=== PATIENT | male | born 1930 | race Caucasian/White ===

== ENCOUNTER 2017-07-02 10:54 | Inpatient (IN) ==
[2017-07-02 12:00] LABS: Apearance,Urine Slightly Hazy (Clear); Bacteria,Urine Many /HPF (Few); Bilirubin,Urine Negative (Negative); Blood, Urine Moderate mg/dL (Negative); Glucose,Urine (UA) Negative (Negative); Ketones,Urine Negative (Negative); Mucus,Urine Many /LPF (Occasional); Nitrite,Urine Positive (Negative); Protein,Urine >=500 MG/DL; RBC,Urine 3 /HPF (0-4); Squamous Epithelial Cell,Urine Occasional /HPF (0-10); Urine Color Yellow (Yellow); Urine Specific Gravity 1.017 (1.001-1.035); Urine Urobilinogen < 2.0 EU/DL (0.2-1.0); WBC,Urine 87 /HPF (0-6)
[2017-07-02] MEDS: ALBUTEROL 2.5 MG/3 ML NEB RESP TX SCH ×3 (12:00→12:50)
[2017-07-02 12:03] LABS: Basophils % 0.1 % (0.0-0.8); Hematocrit 37.7 VOL% (42.0-52.0); Hemoglobin 11.5 GM/DL (14.0-18.0); Immature Granulocytes Absolute 0.07 #; Lymphocytes # 0.7 10*3/uL (1.4-4.0); Lymphocytes % 9.4 % (21.2-54.2); Mean Corpuscular HGB Conc 30.5 GM/DL (32-36); Mean Corpuscular Hemoglobin 30 PG (27-34); Mean Corpuscular Volume 97.2 FL (87-102); Mean Platelet Volume 11.5 FL (9.6-12.0); Monocytes # 0.3 10*3/uL (0.11-0.8); Monocytes % 4.7 % (1.7-12.7); Neutrophils # 5.9 10*3/uL (1.4-7.4); Neutrophils % 84.8 % (38.7-73.9); Platelet Count 144 T/CUMM (130-400); Red Blood Count 3.88 MC/CUMM (3.8-5.5); Red Cell Distribution Width 15.2 % (9.3-17.3)
[2017-07-02 12:09] LABS: INR 1.2; PT Patient Result 12.2 SECS
[2017-07-02 12:24] LABS: Band Neutrophils 2 % (0-10); Hypochromasia 1+; Lymphocytes 8 % (20-55); Segmented Neutrophils 87 % (50-85); Total Cells Counted 100
[2017-07-02 12:25] LABS: Ovalocytes Slight; Platelet Estimate Adequate
[2017-07-02] MEDS ORDERED: PIPERACILLIN/TAZOBACTAM 3,375 MG in SODIUM CHLORIDE 0.9% 100 ML IV STA (12:31)
[2017-07-02 12:36] LABS: Albumin 2.1 G/DL (3.4-5.0); Bilirubin,Total 0.8 MG/DL (0.2-1.0); Calcium 10.8 MG/DL (8.5-10.1); Potassium 3.8 MMOL/L (3.5-5.1); Total Protein 7.3 G/DL (6.4-8.3)
[2017-07-02] MEDS ORDERED: PIPERACILLIN/TAZOBACTAM 3,375 MG VIAL IV ONE (13:14)
[2017-07-02] MEDS ORDERED: SODIUM CHLORIDE 0.9% 100 ML IV ONE (13:15)
[2017-07-02] MEDS ORDERED: FUROSEMIDE 40 MG/4 ML VIAL IV STA (13:21)
[2017-07-02] MEDS ORDERED: FUROSEMIDE 40 MG/4 ML VIAL ONE (13:34)
[2017-07-02] MEDS ORDERED: ONDANSETRON 4 MG/2 ML VIAL IV PRN (14:47)
[2017-07-02] MEDS ORDERED: LEVOFLOXACIN INJ 500 MG in PREMIX 1 EACH IV ONE (15:00)
[2017-07-02] MEDS: MEROPENEM 1,000 MG in SYRINGE 1 EACH IV SCH (19:21)
[2017-07-03 04:43] LABS: Basophils % 0.1 % (0.0-0.8); Eosinophils % 0.1 % (0.00-10.9); Hematocrit 38.2 VOL% (42.0-52.0); Hemoglobin 11.6 GM/DL (14.0-18.0); Immature Granulocytes % 0.6 %; Immature Granulocytes Absolute 0.06 #; Lymphocytes # 1.8 10*3/uL (1.4-4.0); Lymphocytes % 19.2 % (21.2-54.2); Mean Corpuscular HGB Conc 30.4 GM/DL (32-36); Mean Corpuscular Hemoglobin 29 PG (27-34); Mean Corpuscular Volume 96.5 FL (87-102); Mean Platelet Volume 11.3 FL (9.6-12.0); Monocytes # 0.6 10*3/uL (0.11-0.8); Monocytes % 6.4 % (1.7-12.7); Neutrophils # 6.9 10*3/uL (1.4-7.4); Neutrophils % 73.6 % (38.7-73.9); Platelet Count 157 T/CUMM (130-400); Red Blood Count 3.96 MC/CUMM (3.8-5.5); White Blood Count 9.4 T/CUMM (4-12)
[2017-07-03 05:20] LABS: Calcium 10.6 MG/DL (8.5-10.1)
[2017-07-03] MEDS: MEROPENEM 1,000 MG in SYRINGE 1 EACH IV SCH ×2 (05:49→17:36)
[2017-07-03] MEDS: PANTOPRAZOLE 40 MG VIAL IV SCH (11:04)
[2017-07-03] MEDS: FUROSEMIDE 40 MG/4 ML VIAL IV SCH ×2 (11:06→15:46)
[2017-07-03] MEDS: POTASSIUM CHLORIDE 20 MEQ TABLET PO SCH ×4 (11:16→20:40)
[2017-07-03] MEDS ORDERED: LEVOFLOXACIN INJ 250 MG in PREMIX 1 EACH IV SCH (15:00)
[2017-07-04 06:07] LABS: Basophils % 0.1 % (0.0-0.8); Eosinophils % 0.2 % (0.00-10.9); Hematocrit 42.3 VOL% (42.0-52.0); Hemoglobin 13.4 GM/DL (14.0-18.0); Immature Granulocytes % 0.8 %; Immature Granulocytes Absolute 0.07 #; Lymphocytes # 1.6 10*3/uL (1.4-4.0); Lymphocytes % 17.7 % (21.2-54.2); Mean Corpuscular HGB Conc 31.7 GM/DL (32-36); Mean Corpuscular Hemoglobin 29 PG (27-34); Mean Corpuscular Volume 92.6 FL (87-102); Mean Platelet Volume 11.6 FL (9.6-12.0); Monocytes # 0.6 10*3/uL (0.11-0.8); Monocytes % 6.3 % (1.7-12.7); Neutrophils # 6.7 10*3/uL (1.4-7.4); Neutrophils % 74.9 % (38.7-73.9); Platelet Count 189 T/CUMM (130-400); Red Blood Count 4.57 MC/CUMM (3.8-5.5); Red Cell Distribution Width 15.2 % (9.3-17.3)
[2017-07-04] MEDS: MEROPENEM 1,000 MG in SYRINGE 1 EACH IV SCH (06:20)
[2017-07-04 06:33] LABS: Eosinophils 1 % (0-10); Giant Platelets Few; Hypochromasia 1+; Lymphocytes 14 % (20-55); Ovalocytes Slight; Platelet Estimate Normal; Segmented Neutrophils 78 % (50-85); Total Cells Counted 100
[2017-07-04 06:37] LABS: Calcium 10.9 MG/DL (8.5-10.1); Osmolality,Calculated 283.4 MOS/KG (273-304); Potassium 3.1 MMOL/L (3.5-5.1)
[2017-07-04 06:40] LABS: Calcium 10.5 MG/DL (8.5-10.1); Magnesium 1.8 MG/DL (1.8-2.4); Osmolality,Calculated 286.3 MOS/KG (273-304); Potassium 3.1 MMOL/L (3.5-5.1)
[2017-07-04 06:41] LABS: Troponin I Only 0.1 NG/ML (0.00-0.045)
[2017-07-04] MEDS: PANTOPRAZOLE 40 MG VIAL IV SCH (09:21)
[2017-07-04] MEDS: POTASSIUM CHLORIDE 20 MEQ TABLET PO PRN ×4 (09:23→16:59)
[2017-07-04] MEDS: FUROSEMIDE 40 MG/4 ML VIAL IV SCH ×2 (09:24→16:59)
[2017-07-04] MEDS: cefTRIAXone 1,000 MG in SYRINGE 1 EACH IV SCH (12:51)
[2017-07-04] MEDS ORDERED: LEVOFLOXACIN INJ 500 MG in PREMIX 1 EACH IV SCH (18:00)
[2017-07-04] MEDS ORDERED: DONEPEZIL 10 MG TABLET PO SCH (21:00)
[2017-07-04] MEDS ORDERED: traZODone 50 MG TABLET PO SCH (21:00)
[2017-07-04] MEDS: APIXABAN 2.5 MG TABLET PO SCH (21:21)
[2017-07-04] MEDS: CARVEDILOL 6.25 MG TABLET PO SCH (21:21)
[2017-07-04] MEDS: MEMANTINE 10 MG TABLET PO SCH (21:21)
[2017-07-04] MEDS: POLYETHYLENE GLYCOL POWDER 17 GM PACK PO SCH (21:23)
[2017-07-04] MEDS: traZODone 50 MG TABLET PO SCH (21:23)
[2017-07-05] MEDS: cefTRIAXone 1,000 MG in SYRINGE 1 EACH IV SCH (02:05)
[2017-07-05 05:43] LABS: Basophils % 0.1 % (0.0-0.8); Eosinophils # 0.1 10*3/uL (0.0-0.87); Eosinophils % 1.6 % (0.00-10.9); Hematocrit 41.9 VOL% (42.0-52.0); Hemoglobin 13.6 GM/DL (14.0-18.0); Immature Granulocytes % 0.6 %; Immature Granulocytes Absolute 0.05 #; Lymphocytes # 2.4 10*3/uL (1.4-4.0); Lymphocytes % 27.3 % (21.2-54.2); Mean Corpuscular HGB Conc 32.5 GM/DL (32-36); Mean Corpuscular Hemoglobin 30 PG (27-34); Mean Corpuscular Volume 92.9 FL (87-102); Mean Platelet Volume 11.4 FL (9.6-12.0); Monocytes # 0.8 10*3/uL (0.11-0.8); Monocytes % 9.1 % (1.7-12.7); NRBC # 0.02 10*3/uL; Neutrophils # 5.5 10*3/uL (1.4-7.4); Neutrophils % 61.3 % (38.7-73.9); Platelet Count 224 T/CUMM (130-400); Red Blood Count 4.51 MC/CUMM (3.8-5.5); Red Cell Distribution Width 15.6 % (9.3-17.3); White Blood Count 8.9 T/CUMM (4-12)
[2017-07-05 06:07] LABS: Calcium 11.1 MG/DL (8.5-10.1); Magnesium 1.8 MG/DL (1.8-2.4); Osmolality,Calculated 283.5 MOS/KG (273-304); Potassium 3.7 MMOL/L (3.5-5.1)
[2017-07-05] MEDS: APIXABAN 2.5 MG TABLET PO SCH (08:56)
[2017-07-05] MEDS: PANTOPRAZOLE 40 MG VIAL IV SCH (08:56)
[2017-07-05] MEDS: POTASSIUM CHLORIDE 20 MEQ TABLET PO PRN (08:57)
[2017-07-05] MEDS: MEMANTINE 10 MG TABLET PO SCH (08:57)
[2017-07-05] MEDS: CARVEDILOL 6.25 MG TABLET PO SCH (08:57)
[2017-07-05] MEDS ORDERED: CETIRIZINE 10 MG TABLET PO SCH (09:00)
[2017-07-05] MEDS ORDERED: MULTIVITAMIN (CENTRUM) TABLET PO SCH (09:00)
[2017-07-05] MEDS: POLYETHYLENE GLYCOL POWDER 17 GM PACK PO SCH (09:00)
[2017-07-05] MEDS: FUROSEMIDE 40 MG/4 ML VIAL IV SCH (09:00)
[2017-07-05] MEDS ORDERED: CYPROHEPTADINE 4 MG TABLET PO SCH (09:00)
[2017-07-05] MEDS ORDERED: ESCITALOPRAM 10 MG TABLET PO SCH (09:00)
[2017-07-05] MEDS ORDERED: ATORVASTATIN 10 MG TABLET PO SCH (09:00)
[2017-07-05] MEDS ORDERED: TAMSULOSIN 0.4 MG CAPSULE PO SCH (09:00)
[2017-07-05] MEDS: traZODone 50 MG TABLET PO SCH (09:56)
[2017-07-05 12:08] VITALS: BP 122/77
== END 2017-07-05 11:50 | DRG 698 ==
LOC: EDUNIT# → EDBD → N.ED 10:54 → SUATTDRO 13:34 → N.EDINP 13:34 → N.TELEN 15:59
PROVIDERS: ADMIT Internal Medicine; ATTEND Internal Medicine

== ENCOUNTER 2017-07-06 06:07 | Inpatient (IN) ==
[2017-07-06 07:14] LABS: Basophils % 0.2 % (0.0-0.8); Eosinophils # 0.2 10*3/uL (0.0-0.87); Eosinophils % 2.5 % (0.00-10.9); Hemoglobin 12.7 GM/DL (14.0-18.0); Immature Granulocytes % 0.9 %; Immature Granulocytes Absolute 0.07 #; Lymphocytes # 1.5 10*3/uL (1.4-4.0); Lymphocytes % 18.7 % (21.2-54.2); Mean Corpuscular HGB Conc 30.2 GM/DL (32-36); Mean Corpuscular Hemoglobin 29 PG (27-34); Mean Corpuscular Volume 95.5 FL (87-102); Mean Platelet Volume 11.5 FL (9.6-12.0); Monocytes # 0.8 10*3/uL (0.11-0.8); Monocytes % 10.1 % (1.7-12.7); Neutrophils # 5.5 10*3/uL (1.4-7.4); Neutrophils % 67.6 % (38.7-73.9); Platelet Count 239 T/CUMM (130-400); Red Cell Distribution Width 15.7 % (9.3-17.3); White Blood Count 8.1 T/CUMM (4-12)
[2017-07-06 07:22] LABS: INR 1.2
[2017-07-06 07:26] LABS: Apearance,Urine CLEAR (Clear); Bilirubin,Urine Negative (Negative); Blood, Urine Small mg/dL (Negative); Glucose,Urine (UA) Negative (Negative); Ketones,Urine 5 mg/dL (Negative); Mucus,Urine Occasional /LPF (Occasional); Nitrite,Urine Negative (Negative); Protein,Urine 100 MG/DL; RBC,Urine 3 /HPF (0-4); Squamous Epithelial Cell,Urine Occasional /HPF (0-10); Urine Color Yellow (Yellow); Urine Specific Gravity 1.013 (1.001-1.035); Urine Urobilinogen < 2.0 EU/DL (0.2-1.0); WBC,Urine 3 /HPF (0-6)
[2017-07-06 07:33] LABS: Albumin 2.3 G/DL (3.4-5.0); Bilirubin,Total 0.4 MG/DL (0.2-1.0); Calcium 11.1 MG/DL (8.5-10.1); Osmolality,Calculated 294.8 MOS/KG (273-304); Potassium 3.9 MMOL/L (3.5-5.1); Total Protein 7.2 G/DL (6.4-8.3)
[2017-07-06 07:37] LABS: Troponin I Only 0.079 NG/ML (0.00-0.045)
[2017-07-06] MEDS ORDERED: MEROPENEM 1,000 MG in SYRINGE 1 EACH IV STA (08:28)
[2017-07-06] MEDS ORDERED: MEROPENEM 1,000 MG VIAL IV ONE (08:33)
[2017-07-06] MEDS ORDERED: DOCUSATE SODIUM 100 MG CAPSULE PO PRN (08:42)
[2017-07-06] MEDS ORDERED: guaiFENesin/DM ER 600-30 MG TABLET PO PRN (08:42)
[2017-07-06] MEDS ORDERED: ACETAMINOPHEN 325 MG TABLET PO PRN ×2 (08:42→12:11)
[2017-07-06] MEDS ORDERED: ONDANSETRON 4 MG/2 ML VIAL IV PRN ×2 (08:42→12:11)
[2017-07-06] MEDS ORDERED: METOPROLOL TARTRATE 5 MG/5 ML VIAL IV ONE ×2 (11:11→11:36)
[2017-07-06] MEDS ORDERED: SODIUM CHLORIDE 0.9% 1,000 ML IV SCH (12:11)
[2017-07-06] MEDS: LOSARTAN 50 MG TABLET PO SCH (14:22)
[2017-07-06] MEDS: hydroCHLOROthiazide 12.5 MG CAPSULE PO SCH (14:22)
[2017-07-06] MEDS: CARVEDILOL 6.25 MG TABLET PO SCH ×2 (14:23→20:55)
[2017-07-06] MEDS: PANTOPRAZOLE 40 MG TABLET PO SCH (14:23)
[2017-07-06] MEDS: APIXABAN 2.5 MG TABLET PO SCH ×2 (14:23→20:54)
[2017-07-06] MEDS: SODIUM CHLORIDE 0.9% 1,000 ML IV SCH ×2 (14:23→22:37)
[2017-07-07 03:16] LABS: Basophils % 0.3 % (0.0-0.8); Eosinophils # 0.4 10*3/uL (0.0-0.87); Eosinophils % 5.2 % (0.00-10.9); Hematocrit 39.3 VOL% (42.0-52.0); Hemoglobin 12.3 GM/DL (14.0-18.0); Immature Granulocytes % 0.5 %; Immature Granulocytes Absolute 0.04 #; Lymphocytes # 1.3 10*3/uL (1.4-4.0); Lymphocytes % 17.6 % (21.2-54.2); Mean Corpuscular HGB Conc 31.3 GM/DL (32-36); Mean Corpuscular Hemoglobin 29 PG (27-34); Mean Platelet Volume 11.8 FL (9.6-12.0); Monocytes # 0.7 10*3/uL (0.11-0.8); Monocytes % 9.9 % (1.7-12.7); Neutrophils % 66.5 % (38.7-73.9); Platelet Count 211 T/CUMM (130-400); Red Blood Count 4.18 MC/CUMM (3.8-5.5); Red Cell Distribution Width 15.7 % (9.3-17.3); White Blood Count 7.5 T/CUMM (4-12)
[2017-07-07 03:38] LABS: Calcium 10.9 MG/DL (8.5-10.1); Osmolality,Calculated 292.8 MOS/KG (273-304); Potassium 3.5 MMOL/L (3.5-5.1)
[2017-07-07] MEDS: LOSARTAN 50 MG TABLET PO SCH (10:10)
[2017-07-07] MEDS: SODIUM CHLORIDE 0.9% 1,000 ML IV SCH ×2 (10:10→22:39)
[2017-07-07] MEDS: hydroCHLOROthiazide 12.5 MG CAPSULE PO SCH (10:10)
[2017-07-07] MEDS: CARVEDILOL 6.25 MG TABLET PO SCH ×2 (10:11→22:10)
[2017-07-07] MEDS: PANTOPRAZOLE 40 MG TABLET PO SCH (10:11)
[2017-07-07] MEDS: APIXABAN 2.5 MG TABLET PO SCH ×2 (10:11→22:10)
[2017-07-07] MEDS: SULFAMETHOX/TRIMETHOPRIM 200-40 MG/5 ML -20 ML UDCUP PO SCH ×2 (13:30→22:10)
[2017-07-08] MEDS: SULFAMETHOX/TRIMETHOPRIM 200-40 MG/5 ML -20 ML UDCUP PO SCH ×2 (10:13→21:38)
[2017-07-08] MEDS: LANSOPRAZOLE ODT 30 MG TABLET PO SCH (10:14)
[2017-07-08] MEDS: LOSARTAN 50 MG TABLET PO SCH (10:14)
[2017-07-08] MEDS: hydroCHLOROthiazide 12.5 MG CAPSULE PO SCH (10:15)
[2017-07-08] MEDS: APIXABAN 2.5 MG TABLET PO SCH ×2 (10:15→21:38)
[2017-07-08] MEDS: CARVEDILOL 6.25 MG TABLET PO SCH ×2 (10:15→21:38)
[2017-07-08] MEDS: ZIPRASIDONE 20 MG/1 ML VIAL IM PRN ×2 (10:29→21:43)
[2017-07-08] MEDS: QUEtiapine 25 MG TABLET PO SCH ×2 (15:16→21:38)
[2017-07-08] MEDS: DONEPEZIL 10 MG TABLET PO SCH (21:38)
[2017-07-08] MEDS: MEMANTINE 5 MG TABLET PO SCH (21:38)
[2017-07-09 06:20] LABS: Basophils % 0.2 % (0.0-0.8); Eosinophils # 0.2 10*3/uL (0.0-0.87); Eosinophils % 2.3 % (0.00-10.9); Hematocrit 42.4 VOL% (42.0-52.0); Hemoglobin 13.5 GM/DL (14.0-18.0); Immature Granulocytes % 0.6 %; Immature Granulocytes Absolute 0.05 #; Lymphocytes # 1.4 10*3/uL (1.4-4.0); Lymphocytes % 15.2 % (21.2-54.2); Mean Corpuscular HGB Conc 31.8 GM/DL (32-36); Mean Corpuscular Hemoglobin 30 PG (27-34); Mean Platelet Volume 11.7 FL (9.6-12.0); Monocytes # 0.8 10*3/uL (0.11-0.8); Monocytes % 8.4 % (1.7-12.7); Neutrophils # 6.6 10*3/uL (1.4-7.4); Neutrophils % 73.3 % (38.7-73.9); Platelet Count 219 T/CUMM (130-400); Red Blood Count 4.51 MC/CUMM (3.8-5.5); Red Cell Distribution Width 15.7 % (9.3-17.3)
[2017-07-09 06:43] LABS: Osmolality,Calculated 287.1 MOS/KG (273-304); Potassium 3.5 MMOL/L (3.5-5.1)
[2017-07-09] MEDS: ZIPRASIDONE 20 MG/1 ML VIAL IM PRN (07:49)
[2017-07-09] MEDS ORDERED: CYPROHEPTADINE 4 MG TABLET PO SCH (09:00)
[2017-07-09] MEDS: SULFAMETHOX/TRIMETHOPRIM 200-40 MG/5 ML -20 ML UDCUP PO SCH (10:33)
[2017-07-09] MEDS: hydroCHLOROthiazide 12.5 MG CAPSULE PO SCH (10:35)
[2017-07-09] MEDS: FINASTERIDE 5 MG TABLET PO SCH (10:35)
[2017-07-09] MEDS: APIXABAN 2.5 MG TABLET PO SCH ×2 (10:35→22:04)
[2017-07-09] MEDS: CARVEDILOL 6.25 MG TABLET PO SCH (10:35)
[2017-07-09] MEDS: TAMSULOSIN 0.4 MG CAPSULE PO SCH (10:35)
[2017-07-09] MEDS: LOSARTAN 50 MG TABLET PO SCH (10:35)
[2017-07-09] MEDS: QUEtiapine 25 MG TABLET PO SCH ×2 (10:35→22:04)
[2017-07-09] MEDS: ESCITALOPRAM 10 MG TABLET PO SCH (10:36)
[2017-07-09] MEDS: LANSOPRAZOLE ODT 30 MG TABLET PO SCH (10:36)
[2017-07-09] MEDS: MEMANTINE 5 MG TABLET PO SCH ×2 (10:36→22:04)
[2017-07-09] MEDS: PIPERACILLIN/TAZOBACTAM 3,375 MG in SODIUM CHLORIDE 0.9% 100 ML IV SCH ×2 (15:56→22:05)
[2017-07-09] MEDS ORDERED: ZINC OXIDE PASTE 113 GM TUBE TOP PRN (16:15)
[2017-07-09] MEDS: DONEPEZIL 10 MG TABLET PO SCH (22:04)
[2017-07-09] MEDS: CARVEDILOL 12.5 MG TABLET PO SCH (22:04)
[2017-07-10] MEDS: PIPERACILLIN/TAZOBACTAM 3,375 MG in SODIUM CHLORIDE 0.9% 100 ML IV SCH ×3 (06:15→23:59)
[2017-07-10] MEDS: ESCITALOPRAM 10 MG TABLET PO SCH (10:16)
[2017-07-10] MEDS: LOSARTAN 50 MG TABLET PO SCH (10:16)
[2017-07-10] MEDS: QUEtiapine 25 MG TABLET PO SCH ×2 (10:16→21:19)
[2017-07-10] MEDS: MEMANTINE 5 MG TABLET PO SCH ×2 (10:16→21:18)
[2017-07-10] MEDS: LANSOPRAZOLE ODT 30 MG TABLET PO SCH (10:17)
[2017-07-10] MEDS: CARVEDILOL 12.5 MG TABLET PO SCH ×2 (10:17→21:19)
[2017-07-10] MEDS: TAMSULOSIN 0.4 MG CAPSULE PO SCH (10:17)
[2017-07-10] MEDS: APIXABAN 2.5 MG TABLET PO SCH ×2 (10:17→21:19)
[2017-07-10] MEDS: FINASTERIDE 5 MG TABLET PO SCH (10:17)
[2017-07-10] MEDS: DONEPEZIL 10 MG TABLET PO SCH (21:19)
[2017-07-11] MEDS: PIPERACILLIN/TAZOBACTAM 3,375 MG in SODIUM CHLORIDE 0.9% 100 ML IV SCH ×2 (06:36→17:36)
[2017-07-11] MEDS: MEMANTINE 5 MG TABLET PO SCH ×2 (09:26→22:01)
[2017-07-11] MEDS: ESCITALOPRAM 10 MG TABLET PO SCH (09:29)
[2017-07-11] MEDS: CARVEDILOL 12.5 MG TABLET PO SCH ×2 (09:29→22:05)
[2017-07-11] MEDS: APIXABAN 2.5 MG TABLET PO SCH ×2 (09:30→22:05)
[2017-07-11] MEDS: QUEtiapine 25 MG TABLET PO SCH ×2 (09:31→22:05)
[2017-07-11] MEDS: FINASTERIDE 5 MG TABLET PO SCH (09:33)
[2017-07-11] MEDS: LOSARTAN 50 MG TABLET PO SCH (09:34)
[2017-07-11] MEDS: LANSOPRAZOLE ODT 30 MG TABLET PO SCH (09:35)
[2017-07-11] MEDS: TAMSULOSIN 0.4 MG CAPSULE PO SCH (09:35)
[2017-07-11] MEDS: DONEPEZIL 10 MG TABLET PO SCH (22:01)
[2017-07-12] MEDS: PIPERACILLIN/TAZOBACTAM 3,375 MG in SODIUM CHLORIDE 0.9% 100 ML IV SCH ×2 (00:01→06:35)
[2017-07-12] MEDS: ZIPRASIDONE 20 MG/1 ML VIAL IM PRN (07:52)
[2017-07-12] MEDS: MEMANTINE 5 MG TABLET PO SCH (08:59)
[2017-07-12] MEDS: LOSARTAN 50 MG TABLET PO SCH (08:59)
[2017-07-12] MEDS: CARVEDILOL 12.5 MG TABLET PO SCH (09:00)
[2017-07-12] MEDS: LANSOPRAZOLE ODT 30 MG TABLET PO SCH (09:00)
[2017-07-12] MEDS: QUEtiapine 25 MG TABLET PO SCH (09:00)
[2017-07-12] MEDS: FINASTERIDE 5 MG TABLET PO SCH (09:00)
[2017-07-12] MEDS: ESCITALOPRAM 10 MG TABLET PO SCH (09:00)
[2017-07-12] MEDS: APIXABAN 2.5 MG TABLET PO SCH (09:00)
[2017-07-12] MEDS: TAMSULOSIN 0.4 MG CAPSULE PO SCH (09:00)
[2017-07-12] MEDS ORDERED: ZOLEDRONIC ACID 4 MG in PREMIX 1 EACH IV ONE (11:33)
[2017-07-12 22:27] VITALS: BP 112/62
== END 2017-07-12 14:40 | DRG 177 ==
LOC: EDUNIT# → EDBD → N.ED 06:07 → SUATTDRO 08:26 → N.EDINP 08:26 → N.4E 11:51
PROVIDERS: ADMIT Internal Medicine; ATTEND Internal Medicine

== ENCOUNTER 2018-02-26 15:54 | Inpatient (IN) ==
[2018-02-26 17:14] LABS: Basophils % 0.3 % (0.0-0.8); Eosinophils # 0.3 10*3/uL (0.0-0.87); Eosinophils % 2.8 % (0.00-10.9); Hematocrit 29.9 VOL% (42.0-52.0); Hemoglobin 8.9 GM/DL (14.0-18.0); Immature Granulocytes % 0.3 %; Immature Granulocytes Absolute 0.03 #; Lymphocytes # 3.2 10*3/uL (1.4-4.0); Lymphocytes % 34.8 % (21.2-54.2); Mean Corpuscular HGB Conc 29.8 GM/DL (32-36); Mean Corpuscular Hemoglobin 28 PG (27-34); Mean Corpuscular Volume 93.1 FL (87-102); Mean Platelet Volume 11.7 FL (9.6-12.0); Monocytes # 1.1 10*3/uL (0.11-0.8); Monocytes % 11.5 % (1.7-12.7); Neutrophils # 4.7 10*3/uL (1.4-7.4); Neutrophils % 50.3 % (38.7-73.9); Platelet Count 164 T/CUMM (130-400); Red Blood Count 3.21 MC/CUMM (3.8-5.5); Red Cell Distribution Width 16.9 % (9.3-17.3); White Blood Count 9.3 T/CUMM (4-12)
[2018-02-26] MEDS ORDERED: SODIUM CHLORIDE 0.9% 1,000 ML IV STA (17:22)
[2018-02-26] MEDS ORDERED: CEFTAROLINE 600 MG in SODIUM CHLORIDE 0.9% 100 ML IV STA (17:24)
[2018-02-26 17:35] LABS: Alanine Aminotransferase 9 U/L (16-61); Albumin 1.7 G/DL (3.4-5.0); Alkaline Phosphatase 63 U/L (45-117); Aspartate Amino Transferase 13 U/L (0-37); Bilirubin,Total < 0.39 MG/DL (0.2-1.0); Blood Urea Nitrogen 47 MG/DL (7-18); Calcium 11.5 MG/DL (8.5-10.1); Glucose 131 MG/DL (74-106); Osmolality,Calculated 286.8 MOS/KG (273-304); Potassium 4.1 MMOL/L (3.5-5.1); Sodium 137 MMOL/L (136-145); Total Protein 8.4 G/DL (6.4-8.3)
[2018-02-26 18:15] LABS: Sedimentation Rate-Westergren 117 MM/HR (0-20)
[2018-02-26] MEDS ORDERED: ONDANSETRON 4 MG/2 ML VIAL IV PRN (18:30)
[2018-02-26] MEDS: SODIUM CHLORIDE 0.9% 1,000 ML IV SCH (22:32)
[2018-02-27] MEDS ORDERED: ACETAMINOPHEN 325 MG TABLET PO PRN (00:48)
[2018-02-27] MEDS ORDERED: DOCUSATE SODIUM 100 MG CAPSULE PO PRN (00:48)
[2018-02-27] MEDS: TAMSULOSIN 0.4 MG CAPSULE PO SCH ×2 (01:43→20:52)
[2018-02-27] MEDS: MIRTAZAPINE 15 MG TABLET PO SCH ×2 (01:44→20:51)
[2018-02-27] MEDS: DONEPEZIL 10 MG TABLET PO SCH ×2 (01:44→20:51)
[2018-02-27] MEDS: ATORVASTATIN 20 MG TABLET PO SCH ×2 (01:44→20:52)
[2018-02-27] MEDS: MEMANTINE 5 MG TABLET PO SCH ×3 (01:44→20:51)
[2018-02-27] MEDS: CARVEDILOL 12.5 MG TABLET PO SCH ×3 (01:44→20:52)
[2018-02-27] MEDS: APIXABAN 2.5 MG TABLET PO SCH ×3 (01:44→20:51)
[2018-02-27 04:56] LABS: Basophils % 0.3 % (0.0-0.8); Eosinophils # 0.4 10*3/uL (0.0-0.87); Eosinophils % 5.5 % (0.00-10.9); Hematocrit 27.1 VOL% (42.0-52.0); Hemoglobin 8.1 GM/DL (14.0-18.0); Immature Granulocytes % 0.3 %; Immature Granulocytes Absolute 0.02 #; Lymphocytes # 2.7 10*3/uL (1.4-4.0); Lymphocytes % 39.7 % (21.2-54.2); Mean Corpuscular HGB Conc 29.9 GM/DL (32-36); Mean Corpuscular Hemoglobin 28 PG (27-34); Mean Corpuscular Volume 92.5 FL (87-102); Mean Platelet Volume 11.9 FL (9.6-12.0); Monocytes # 0.8 10*3/uL (0.11-0.8); Monocytes % 10.9 % (1.7-12.7); Neutrophils % 43.3 % (38.7-73.9); Platelet Count 138 T/CUMM (130-400); Red Blood Count 2.93 MC/CUMM (3.8-5.5); Red Cell Distribution Width 16.9 % (9.3-17.3); White Blood Count 6.9 T/CUMM (4-12)
[2018-02-27 05:26] LABS: Calcium 9.9 MG/DL (8.5-10.1); Osmolality,Calculated 289.5 MOS/KG (273-304); Potassium 4.2 MMOL/L (3.5-5.1)
[2018-02-27] MEDS ORDERED: PANTOPRAZOLE 40 MG TABLET PO SCH (09:00)
[2018-02-27] MEDS: MULTIVITAMIN (CENTRUM) TABLET PO SCH (10:11)
[2018-02-27] MEDS: LOSARTAN 50 MG TABLET PO SCH (10:11)
[2018-02-27] MEDS: CETIRIZINE 10 MG TABLET PO SCH (10:11)
[2018-02-27] MEDS: CEFTAROLINE 400 MG in SODIUM CHLORIDE 0.9% 100 ML IV SCH ×2 (10:11→20:53)
[2018-02-27] MEDS: busPIRone 5 MG TABLET PO SCH ×3 (10:11→20:51)
[2018-02-27] MEDS: CYPROHEPTADINE 4 MG TABLET PO SCH ×2 (10:11→20:52)
[2018-02-27] MEDS: ESCITALOPRAM 10 MG TABLET PO SCH (10:12)
[2018-02-27] MEDS: FINASTERIDE 5 MG TABLET PO SCH (10:12)
[2018-02-27] MEDS: PANTOPRAZOLE 40 MG TABLET PO SCH (10:12)
[2018-02-27] MEDS: POLYETHYLENE GLYCOL POWDER 17 GM PACK PO SCH ×2 (10:18→20:52)
[2018-02-27] MEDS: FUROSEMIDE 20 MG TABLET PO SCH (10:18)
[2018-02-27] MEDS: SODIUM CHLORIDE 0.9% 1,000 ML IV SCH (17:52)
[2018-02-28] MEDS: CEFTAROLINE 400 MG in SODIUM CHLORIDE 0.9% 100 ML IV SCH ×2 (09:10→21:30)
[2018-02-28] MEDS: FUROSEMIDE 20 MG TABLET PO SCH (09:11)
[2018-02-28] MEDS: PANTOPRAZOLE 40 MG TABLET PO SCH (09:11)
[2018-02-28] MEDS: CARVEDILOL 12.5 MG TABLET PO SCH ×2 (09:11→21:30)
[2018-02-28] MEDS: CETIRIZINE 10 MG TABLET PO SCH (09:11)
[2018-02-28] MEDS: POLYETHYLENE GLYCOL POWDER 17 GM PACK PO SCH ×2 (09:11→21:29)
[2018-02-28] MEDS: MEMANTINE 5 MG TABLET PO SCH ×2 (09:11→21:30)
[2018-02-28] MEDS: ESCITALOPRAM 10 MG TABLET PO SCH (09:11)
[2018-02-28] MEDS: CYPROHEPTADINE 4 MG TABLET PO SCH ×2 (09:12→21:29)
[2018-02-28] MEDS: MULTIVITAMIN (CENTRUM) TABLET PO SCH (09:12)
[2018-02-28] MEDS: LOSARTAN 50 MG TABLET PO SCH (09:12)
[2018-02-28] MEDS: APIXABAN 2.5 MG TABLET PO SCH ×2 (09:12→21:30)
[2018-02-28] MEDS: FINASTERIDE 5 MG TABLET PO SCH (09:12)
[2018-02-28] MEDS: busPIRone 5 MG TABLET PO SCH ×3 (09:12→21:31)
[2018-02-28] MEDS: SODIUM CHLORIDE 0.9% 1,000 ML IV SCH (14:55)
[2018-02-28] MEDS: MIRTAZAPINE 15 MG TABLET PO SCH (21:29)
[2018-02-28] MEDS: ATORVASTATIN 20 MG TABLET PO SCH (21:30)
[2018-02-28] MEDS: TAMSULOSIN 0.4 MG CAPSULE PO SCH (21:30)
[2018-02-28] MEDS: DONEPEZIL 10 MG TABLET PO SCH (21:31)
[2018-02-28] MEDS: ACETAMINOPHEN 325 MG TABLET PO PRN (23:25)
[2018-03-01] MEDS: MULTIVITAMIN (CENTRUM) TABLET PO SCH (09:14)
[2018-03-01] MEDS: CYPROHEPTADINE 4 MG TABLET PO SCH ×2 (09:14→22:34)
[2018-03-01] MEDS: FINASTERIDE 5 MG TABLET PO SCH (09:14)
[2018-03-01] MEDS: LOSARTAN 50 MG TABLET PO SCH (09:14)
[2018-03-01] MEDS: CARVEDILOL 12.5 MG TABLET PO SCH ×2 (09:14→22:33)
[2018-03-01] MEDS: CETIRIZINE 10 MG TABLET PO SCH (09:14)
[2018-03-01] MEDS: busPIRone 5 MG TABLET PO SCH ×3 (09:14→22:34)
[2018-03-01] MEDS: ESCITALOPRAM 10 MG TABLET PO SCH (09:15)
[2018-03-01] MEDS: POLYETHYLENE GLYCOL POWDER 17 GM PACK PO SCH ×2 (09:15→22:35)
[2018-03-01] MEDS: PANTOPRAZOLE 40 MG TABLET PO SCH (09:15)
[2018-03-01] MEDS: MEMANTINE 5 MG TABLET PO SCH ×2 (09:15→22:33)
[2018-03-01] MEDS: APIXABAN 2.5 MG TABLET PO SCH ×2 (09:15→22:33)
[2018-03-01] MEDS: FUROSEMIDE 20 MG TABLET PO SCH (09:15)
[2018-03-01] MEDS: CEFTAROLINE 400 MG in SODIUM CHLORIDE 0.9% 100 ML IV SCH ×2 (09:15→22:34)
[2018-03-01] MEDS: SODIUM CHLORIDE 0.9% 1,000 ML IV SCH (10:55)
[2018-03-01] MEDS: ACETAMINOPHEN 325 MG TABLET PO PRN (18:08)
[2018-03-01] MEDS: MIRTAZAPINE 15 MG TABLET PO SCH (22:33)
[2018-03-01] MEDS: ATORVASTATIN 20 MG TABLET PO SCH (22:33)
[2018-03-01] MEDS: DONEPEZIL 10 MG TABLET PO SCH (22:34)
[2018-03-01] MEDS: TAMSULOSIN 0.4 MG CAPSULE PO SCH (22:34)
[2018-03-02 08:06] VITALS: BP 117/69
[2018-03-02] MEDS: SODIUM CHLORIDE 0.9% 1,000 ML IV SCH (08:59)
[2018-03-02] MEDS: CEFTAROLINE 400 MG in SODIUM CHLORIDE 0.9% 100 ML IV SCH (09:00)
[2018-03-02] MEDS: APIXABAN 2.5 MG TABLET PO SCH (09:02)
[2018-03-02] MEDS: CETIRIZINE 10 MG TABLET PO SCH (09:02)
[2018-03-02] MEDS: busPIRone 5 MG TABLET PO SCH (09:02)
[2018-03-02] MEDS: POLYETHYLENE GLYCOL POWDER 17 GM PACK PO SCH (09:02)
[2018-03-02] MEDS: MEMANTINE 5 MG TABLET PO SCH (09:02)
[2018-03-02] MEDS: CYPROHEPTADINE 4 MG TABLET PO SCH (09:02)
[2018-03-02] MEDS: MULTIVITAMIN (CENTRUM) TABLET PO SCH (09:02)
[2018-03-02] MEDS: ESCITALOPRAM 10 MG TABLET PO SCH (09:03)
[2018-03-02] MEDS: LOSARTAN 50 MG TABLET PO SCH (09:03)
[2018-03-02] MEDS: FUROSEMIDE 20 MG TABLET PO SCH (09:03)
[2018-03-02] MEDS: CARVEDILOL 12.5 MG TABLET PO SCH (09:03)
[2018-03-02] MEDS: FINASTERIDE 5 MG TABLET PO SCH (09:03)
[2018-03-02] MEDS: PANTOPRAZOLE 40 MG TABLET PO SCH (09:03)
== END 2018-03-02 11:16 | DRG 560 ==
LOC: EDBD → EDUNIT# → N.ED 15:54 → N.EDINP 18:30 → N.2E 19:20
PROVIDERS: ADMIT Internal Medicine Geriatric Medicine; ATTEND Internal Medicine Geriatric Medicine